=== PATIENT | male | born 1990 | race Caucasian/White ===

== ENCOUNTER 2019-03-13 18:28 | Emergency (ER) | payer OTHER ==
[~2019-03-13] VITALS: Ht 188 cm; Wt 85.5 kg
[2019-03-13 18:31] VITALS: BP 134/93
[2019-03-13] MEDS ORDERED: LIDOCAINE-MPF 1%, 5ML ONE (18:46)
[2019-03-13] MEDS ORDERED: DIPH,PERTUSS(ACELL),TET VAC/PF 0.5 ML IM-VACC ONE ×3 (19:00→19:30)
[2019-03-13] MEDS ORDERED: LIDOCAINE-MPF 1%, 5ML INFIL ONE (19:00)
== END 2019-03-13 19:37 | disposition home or self-care (01) ==
LOC: ED 19:34
DX: S61.210A Laceration without foreign body of right index finger without damage to nail, initial encounter (principal); G89.11 Acute pain due to trauma; J45.909 Unspecified asthma, uncomplicated; W29.2XXA Contact with other powered household machinery, initial encounter; Y93.89 Activity, other specified; Y92.098 Other place in other non-institutional residence as the place of occurrence of the external cause; Y99.8 Other external cause status
CPT/HCPCS: 12002; 90471; 90715; 99284

== ENCOUNTER 2020-12-06 19:31 | Emergency (ER) | payer BC, OTHER ==
[~2020-12-06] VITALS: Ht 188 cm; Wt 85.9 kg
--- NOTE | 2020-12-06 19:50 | NUR ---
PT. TO ED FROM FOR C/O DIFFUSE ABD PAIN WORSE AT NIGHT TIME AFTER EATING FOR THE LAST WEEK. PT. REPORT PAIN NOW RADIATES TO LEFT LOWER BACK. C/O NAUSEA BUT DENIES ANY VOMITING/DIARRHEA/OR CONSTIPATION. DENEIS HX OF ABD SURGERIES OR ABD COMPLICATIONS IN THE PAST. DR. KRUEGER IN TO EVAL PT. AND DISCUSS POC. URINE SAMPLE COLLECTED.
[2020-12-06] MEDS ORDERED: ONDANSETRON ODT 4 MG PO ONE (20:00)
[2020-12-06] MEDS ORDERED: MAALOX/HYOSCYAMINE/LIDOCAINE 45 ML BTL ONE (20:00)
[2020-12-06] MEDS ORDERED: ONDANSETRON ODT 4 MG ONE (20:00)
[2020-12-06] MEDS ORDERED: MAALOX/HYOSCYAMINE/LIDOCAINE 45 ML BTL PO ONE (20:00)
[2020-12-06 20:04] LABS: MICROSCOPIC NOT IND
[2020-12-06 20:28] LABS: BASOPHILS % (AUTO) 0 % (0-1); EOSINOPHILS % (AUTO) 11 % (1-7); LYMPHOCYTES % (AUTO) 32 % (22-44); MEAN CORPUSCULAR HEMOGLOBIN 29.8 pg (27.5-34.5); MEAN CORPUSCULAR HGB CONC 34.6 g/dL (33.2-36.2); MEAN PLATELET VOLUME 7.8 fL (7.4-10.4); MONOCYTES % (AUTO) 6 % (2-9); NEUTROPHILS % (AUTO) 51 % (42-75); PLATELET COUNT 288 x10^3/uL (130-400); RED BLOOD COUNT 5.12 x10^6/uL (4.38-5.82); RED CELL DISTRIBUTION WIDTH 12.7 % (9.4-14.8)
[2020-12-06 20:29] LABS: MD NO
[2020-12-06 20:34] LABS: ALANINE AMINOTRANSFERASE 26 U/L (12-78); ALBUMIN 4.2 g/dL (3.4-5.0); ANION GAP 5 mmol/L (5-15); CALCIUM 8.8 mg/dL (8.5-10.1); CHLORIDE 109 mmol/L (98-107); CREATININE 1.12 mg/dL (0.7-1.3)
[2020-12-06 20:36] LABS: ALKALINE PHOSPHATASE 73 U/L (45-117); BILIRUBIN,TOTAL 0.4 mg/dL (0.2-1.0); TOTAL PROTEIN 7.2 g/dL (6.4-8.2)
[2020-12-06] MEDS ORDERED: MORPHINE SULFATE 4 MG/ML, 1ML ONE ×2 (20:54→22:15)
[2020-12-06] MEDS ORDERED: PANTOPRAZOLE 40 MG IV ONE (20:55)
[2020-12-06] MEDS ORDERED: FAMOTIDINE 20 MG/2 ML ONE ×2 (20:55→20:57)
[2020-12-06] MEDS ORDERED: FAMOTIDINE 20 MG TABLET PO ONE (21:00)
[2020-12-06] MEDS ORDERED: SODIUM CHLORIDE 0.9% 1,000ML IVBOLUS ONE (21:00)
[2020-12-06] MEDS ORDERED: PANTOPRAZOLE 40 MG IV IV ONE (21:00)
[2020-12-06] MEDS ORDERED: PANTOPRAZOLE 20MG TABLET PO ONE (21:00)
[2020-12-06] MEDS ORDERED: FAMOTIDINE 20 MG/2 ML IVPush ONE (21:00)
[2020-12-06] MEDS: MORPHINE SULFATE 4 MG/ML, 1ML IVPush PRN ×2 (21:14→22:31)
--- NOTE | 2020-12-06 21:29 | NUR ---
PT. MEDICATED PER MAR; IVF INFUSING. CHART UP FOR RECHECK BY ERP. PT. DENIES NEEDS. REPORTS PAIN DOWN TO 6/10 FROM 8/10 AFTER MORPHINE ADMIN. ALL SAFETY MEASURES MAINTAINED.
[2020-12-06] MEDS ORDERED: PANTOPRAZOLE 40 MG IV IVPush ONE (21:30)
--- NOTE | 2020-12-06 22:01 | NUR ---
PT. PROVIDED WITH CRACKERS AND SPRITE FOR PO CHALLENGE PER .
--- NOTE | 2020-12-06 22:19 | NUR ---
PT. REPORTS INCREASE IN PAIN AFTER EATING CRACKERS. DR. GALE AWARE. 2ND DOSE OF PAIN MEDS TO BE ADMIN. DR. GALE TO DISCUSS POC WITH PT.
[2020-12-06 22:53] VITALS: BP 118/75
== END 2020-12-06 23:14 | disposition home or self-care (01) ==
LOC: ED 21:29
DX: K26.3 Acute duodenal ulcer without hemorrhage or perforation (principal); J45.909 Unspecified asthma, uncomplicated
CPT/HCPCS: 36415; 76700; 80053; 81003; 83690; 85025; 96361; 96374; 96375; 96376; 99285; C9113; J2270; J7030; Q0162